=== PATIENT | male | born 1950 | race Caucasian/White ===

== ENCOUNTER 2022-02-08 09:20 | Day surgery (SDC) | payer BC, MEDICARE ==
[2022-02-08] MEDS ORDERED: Marcaine Mpf 0.5% Vial 30 Ml IJ ONE (09:21)
[2022-02-08] MEDS ORDERED: Depo-Medrol 40 MG/ML IM ONE (09:21)
[2022-02-08] MEDS ORDERED: LIDOCAINE HCL 1% 50 MG/5 ML VL PF IJ ONE (09:21)
--- NOTE | 2022-02-08 11:03 | XRAY ---
Indication: Left SI joint injection. Intraoperative fluoroscopy provided for 10 seconds. 3 digital spot image submitted for interpretation demonstrates posterior needle tip projecting over the inferior left SI joint. Correlate with intraoperative findings/report.
--- NOTE | 2022-02-08 12:26 | XRAY ---
10 seconds fluoroscopy time in surgery for injection of the left SI joint.
== END 2022-02-08 10:49 | disposition home or self-care (01) ==
LOC: SDC-PAIN 09:20
PROVIDERS: ATTEND Psychiatry & Neurology Pain Medicine
DX: M46.1 Sacroiliitis, not elsewhere classified (principal); E11.9 Type 2 diabetes mellitus without complications; Z79.899 Other long term (current) drug therapy
CPT/HCPCS: 27096; 72170; 77002; 82947; G0260; J1030; J2001